=== PATIENT | male | born 1975 | race African-American/Black ===

== ENCOUNTER 2019-04-24 05:10 | Day surgery (SDC) | payer OTHER ==
[2019-04-17 11:46] VITALS: BMI 23.2
[2019-04-24 12:52] VITALS: PULSE 93; TEMP 98.6
[2019-04-24 12:55] VITALS: BP 160/110
[2019-04-24] MEDS ORDERED: MIDAZOLAM HCL 2 MG/2 ML SINGLE DOSE VIAL ONE ×3 (14:00→14:10)
[2019-04-24] MEDS ORDERED: EPHEDRINE SULFATE/0.9% NACL/PF 50 MG/10 ML SYRINGE NR ONE (14:01)
[2019-04-24] MEDS ORDERED: ROPIVACAINE HCL 0.5% 30ML VIAL ONE (14:08)
--- NOTE | 2019-04-24 14:16 | HP ---
Satellite [facility] - Chief Complaint Chief Complaint: left shoulder pain - Past Medical History Allergies/Adverse Reactions: Allergies Allergy/AdvReac Type Severity Reaction Status Date / Time No Known Allergies Allergy Verified 04/17/19 11:35 - Current Medications Current Medications: Home Medications Medication Instructions Recorded Cyclobenzaprine HCl 5 mg PO PC PRN 04/17/19 Ibuprofen 800 mg PO PRN PRN 04/17/19 Satellite Physical Exam - Physical Examination Vital Signs: Vital Signs Period Temp Pulse Resp BP Sys/Yanez Pulse Ox Last 24 Hr 98.6 F 93 16 148-160/103-115 100 General Appearance: Well Nourished, Well Developed, Alert & Oriented x3 ENT: Clear Lung: Normal air movement Heart: Regular rate & rhythm Extremities: Other (left shoulder- + ttp, decr rom, + neer, + victoria, nvi) Neurological: Intact, Alert, Oriented [facility] Impression/Plan - Impression/Plan Impression: left shoulder impingement, rct Operative Procedure: left shoulder arthroscopy with SAD and possible RCR Date to be Performed: 04/24/19
== END 2019-04-24 14:40 | disposition home or self-care (01) ==
LOC: JASU-SURG 05:10
PROVIDERS: ATTEND Orthopaedic Surgery
DX: Z53.8 Procedure and treatment not carried out for other reasons (principal)

== ENCOUNTER 2019-07-18 06:26 | Day surgery (SDC) | payer OTHER ==
[2019-07-17 10:40] VITALS: BMI 27.3
[2019-07-18] MEDS ORDERED: ROPIVACAINE HCL 0.5% 30ML VIAL ONE (07:13)
[2019-07-18] MEDS ORDERED: PROPOFOL 20 ML ONE ×2 (07:17)
[2019-07-18] MEDS ORDERED: ceFAZolin SODIUM 1 GM VIAL ONE (07:20)
[2019-07-18] MEDS ORDERED: DEXAMETHASONE SOD PHOSPHATE 4 MG/1 ML VIAL ONE (07:20)
[2019-07-18] MEDS ORDERED: KETOROLAC TROMETHAMINE 30 MG/1 ML VIAL ONE (07:20)
[2019-07-18] MEDS ORDERED: SODIUM CHLORIDE 0.9% P/F 10 ML VIAL IJ ONE (07:20)
[2019-07-18] MEDS ORDERED: EPHEDRINE SULFATE/0.9% NACL/PF 50 MG/10 ML SYRINGE NR ONE (07:21)
[2019-07-18] MEDS ORDERED: MIDAZOLAM HCL 2 MG/2 ML SINGLE DOSE VIAL ONE ×2 (07:28)
--- NOTE | 2019-07-18 07:53 | HP ---
Satellite [facility] - Chief Complaint Chief Complaint: left shoulder pain - Past Medical History Allergies/Adverse Reactions: Allergies Allergy/AdvReac Type Severity Reaction Status Date / Time No Known Allergies Allergy Verified 07/18/19 06:42 - Current Medications Current Medications: Home Medications Medication Instructions Recorded Losartan Potassium 50 mg PO DAILY 07/17/19 Hydrocodone/Acetaminophen 1 each PO Q6H #20 tablet MDD 4 07/18/19 [Hydrocodone-Acetamin 5-325 mg] Satellite Physical Exam - Physical Examination Vital Signs: Vital Signs Period Temp Pulse Resp BP Sys/Yanez Pulse Ox Last 24 Hr 98.5 F 135 18 148/96 100 General Appearance: Well Nourished, Well Developed, Alert & Oriented x3 ENT: Clear Lung: Normal air movement Extremities: Other (left shoulder- + ttp, decr rom ,+ neer, + victoria, nvi) Neurological: Intact, Alert, Oriented Satellite Impression/Plan - Impression/Plan Impression: left shoulder impingement Operative Procedure: left shoulder arthroscopy with SAD and possible RCR Date to be Performed: 07/18/19
[2019-07-18] MEDS ORDERED: ceFAZolin SODIUM 1 GM VIAL IVPB ONE (08:30)
[2019-07-18] MEDS ORDERED: ACETAMINOPHEN 1000 MG/100 ML VIAL (NON FORMULARY) IVPB ONE ×2 (08:47→10:15)
[2019-07-18] MEDS ORDERED: ONDANSETRON 4 MG/2 ML VIAL IVPUSH PRN (08:48)
[2019-07-18] MEDS ORDERED: oxyCODONE HCL 5 MG TABLET PO PRN ×2 (08:48)
[2019-07-18] MEDS ORDERED: LACTATED RINGERS SOLUTION 1,000 ML IV SCH (09:00)
--- NOTE | 2019-07-18 09:19 | OP ---
Operative Note - Note: Operative Date: 07/18/19 Pre-Operative Diagnosis: left shoulder ACJ OA, Impingement syndrome Operation: left shoulder arthroscopy, subacromial decompression, distal clavicle excision Post-Operative Diagnosis: Same as Pre-op Surgeon: Eb Randall Anesthesiologist/AUTOMATIC MACHINE ATTENDANT: Lashonda Aguirre Anesthesia: General, Local Specimens Removed: shavings Estimated Blood Loss (mls): 20 Drains, Volume Out (mls): 0 Blood Volume Replaced (mls): 0 Fluid Volume Replaced (mls): 700 Operative Report Dictated: Yes
[2019-07-18] MEDS ORDERED: ACETAMINOPHEN INJECTION 100 ML IVPB ONE (10:35)
[2019-07-18 12:09] VITALS: BP 135/76; PULSE 106; TEMP 97
--- NOTE | 2019-07-18 18:32 | OP ---
DATE OF OPERATION: DATE OF DICTATION: 07/18/2019 PREOPERATIVE DIAGNOSIS: Left shoulder impingement syndrome and acromioclavicular joint arthritis. POSTOPERATIVE DIAGNOSIS: Left shoulder impingement syndrome and acromioclavicular joint arthritis. PROCEDURE: Left shoulder arthroscopy, subacromial decompression, distal palpable excision. SURGEON: Eb Colin MD. AUTOMATIC FANCY MACHINE OPERATOR: None. ANESTHESIOLOGIST: Lashonda Aguirre MD. ANESTHESIA: Left interscalene block and LMA anesthesia. DRAINS: None. COMPLICATIONS: None. BLOOD LOSS: 20 mL. BLOOD GIVEN: None. FLUID REPLACEMENT: 700 mL Plasmalyte. INDICATION: This patient is a 43-year-old male with preoperative diagnosis of significant left shoulder pain and impingement syndrome and AC joint arthritis. After understanding the potential risks, complications, alternatives, benefits to surgery versus nonsurgical treatment, the patient elected to undergo this procedure. DESCRIPTION OF PROCEDURE; The patient was brought to the operating room, peripheral IV placed, IV sedation given, 2 g of IV Ancef was given. A left interscalene block was performed. She was placed into the beach chair position with ample padding throughout. The left upper extremity was prepped and draped in sterile fashion. The bony landmarks are marked out with a marking pen. A posterior portal was established with a number 15-scalpel blade. Diagnostic glenohumeral arthroscopy was performed. Everything inside the joint looked good. The biceps tendon, the biceps anchor, the labrum, the glenoid, the humeral head, and the undersurface of the rotator cuff all looked good. The area was copiously irrigated and washed out. Next our attention turned to the subacromial space. Lateral portal was established, first using a spinal needle under direct visualization, a number 15-scalpel blade and cannula, an ArthroCare wand was used to do a soft tissue bursectomy. The patient had a tremendous amount of inflammatory bursitis. After this extensive debridement/soft tissue bursectomy, this revealed a large subacromial and a moderate sized distal clavicular spur, both were taken down with a 5.5-mm oval bur and fine-tuned in reverse and then with a straight shaver. Once this was done, there was plenty of room. The bony subacromial decompression was completed, and the rotator cuff was directly visualized. I put the arm through a full range of motion, and there was no point in impingement of the rotator cuff on the bone spurs. The area was copiously irrigated and washed out. All debris and excess saline removed. The area was then washed and dried. The arthroscopy portal was closed with 3-0 nylon sutures. Two Aquacel dressings were applied. Then the arm was put into a sling. Total operative time was about 35 minutes. There were no complications during the case. The patient tolerated the procedure quite well and was brought to the ambulatory recovery room in stable condition. Blood loss was minimal. during the case. EB COLIN M.D. [id number]
--- NOTE | 2019-07-19 16:29 | PATH ---
Surgical Pathology Report Patient Name: NIKO AMIN Med. Rec. #: [id number] /Age/Gender: 1975 (Age: 43) / M Account: [id number] Location: [facility] SUR[facility] Taken: 07/18/2019 Received: 07/18/2019 Reported: 07/19/2019 Physicians: Eb Randall M.D. Specimen(s) Received LEFT SHOULDER SHAVINGS Clinical History Left shoulder tear Final Diagnosis SHOULDER SHAVINGS, LEFT, ARTHROSCOPY WITH DECOMPRESSION: FRAGMENTS OF BENIGN CARTILAGE, BONE, DENSE FIBROCONNECTIVE TISSUE, ADIPOSE TISSUE, AND SKELETAL MUSCLE. Electronically Signed Swetha Way M.D. Gross Description Received in formalin, labeled "left shoulder shavings," is a 6.5 x 5.0 x 0.5 cm. aggregate of man-yellow soft tissue fragments. A farm loan representative portion is submitted in one cassette. /07/18/2019 saudi/07/18/2019
== END 2019-07-18 13:00 | disposition home or self-care (01) ==
LOC: JASU-SURG 06:26
PROVIDERS: ATTEND Orthopaedic Surgery
PROC: 0PBB4ZZ Excision of Left Clavicle, Percutaneous Endoscopic Approach (ICD-10-PCS; 2019-07-18)
PROC: 0RNK4ZZ Release Left Shoulder Joint, Percutaneous Endoscopic Approach (ICD-10-PCS; principal; 2019-07-18 08:00)
DX: M75.42 Impingement syndrome of left shoulder (principal); M13.812 Other specified arthritis, left shoulder
CPT/HCPCS: 94760; J0131